=== PATIENT | female | born 1965 | race Caucasian/White ===

== ENCOUNTER → 2019-12-15 12:56 | Outpatient (CLI) | payer OTHER, SELFPAY ==
--- NOTE | ~2019-12-15 | MM_ITS ---
EXAMINATION: MM screening [facility] BI w elizabeth HISTORY: Screening mammogram TECHNIQUE: Craniocaudal and mediolateral oblique 3-D tomosynthesis images were obtained and synthetic 2-D images were generated. CAD analysis was submitted and interpreted. COMPARISON: 06/19/2018, 12/17/2016, 08/01/2015 BREAST PARENCHYMAL COMPOSITION: There are scattered areas of fibroglandular density. FINDINGS: RIGHT BREAST: There is no evidence of suspicious mass, calcification, or architectural distortion to suggest malignancy. There has been no significant interval change. LEFT BREAST: An asymmetry is present in the posterior third of the breast best appreciated 10 cm from the nipple on the mediolateral oblique view. IMPRESSION: 1. Left breast asymmetry on the mediolateral oblique view. 2. Additional mammographic views and possible breast ultrasound are recommended. BI-RADS Category 0: Incomplete: Needs additional imaging evaluation. Reviewed, dictated and finalized at location A. IMPRESSION: 1. Left breast asymmetry on the mediolateral oblique view. 2. Additional mammographic views and possible breast ultrasound are recommended . BI-RADS Category 0: Incomplete: Needs additional imaging evaluation.
== END ==
PROVIDERS: Visit Provider Nurse Practitioner Obstetrics & Gynecology
DX: Z12.31 Encounter for screening mammogram for malignant neoplasm of breast (principal); R92.8 Other abnormal and inconclusive findings on diagnostic imaging of breast
CPT/HCPCS: 77063; 77067

== ENCOUNTER → 2020-01-15 13:09 | Outpatient (CLI) | payer OTHER, SELFPAY ==
--- NOTE | ~2020-01-15 | MMUS_ITS ---
EXAMINATION: MM diagnostic mammo unilat LT, US breast LT limited HISTORY: Left breast asymmetry reported on screening MLO view of 12/15/2019 TECHNIQUE: Additional 3-D tomosynthesis images of the left breast were performed . CAD analysis was s ubmitted and interpreted. High resolution targeted 3:00 left breast ultrasound was performed. COMPARISON: 12/15/2019 bilateral digital screening mammogram FINDINGS: MAMMOGRAPHIC FINDINGS: A circumscribed approximately 6 cm opacity is noted in the mid to posterior aspect of the mid outer l eft breast. Targeted left breast ultrasound is recommended. No other suspicious mass or architectural distortion is evident. ULTRASOUND: 3:00 6 cm from nipple: 2.2 x 4.4 x 3.7 mm sonolucency, consistent with small cysts 3:00 8 cm from nipple: There is an ill-defined irregular hypoechogenicity with color flow signal and posterior shadowing at 3:00 8 cm from the nipple. This is suspicious appearing sonographically. Ultra sound-guided biopsy is recommended. IMPRESSION: 1. Irregular hypoechoic shadowing lesion with internal vascularity at 3:00 8 cm from nipple; 2. Ultrasound-guided biopsy of 3:00 lesion 8 cm from nipple is recommended BI-RADS category 4, suspicious findings. Reviewed, dictated and finalized at location A. IMPRESSION: 1. Irregular hypoechoic shadowing lesion with internal vascularity at 3:00 8 cm from nipple; 2. Ultrasound-guided biopsy of 3:00 lesion 8 cm from nipple is recommended BI-RADS category 4, suspicious findings.
== END ==
PROVIDERS: PCP Family Medicine; Visit Provider Nurse Practitioner Obstetrics & Gynecology
DX: R92.8 Other abnormal and inconclusive findings on diagnostic imaging of breast (principal)
CPT/HCPCS: 76642; 77065

== ENCOUNTER 2020-03-29 08:43 | Outpatient (CLI) | payer OTHER, SELFPAY | END 2020-03-29 08:44 | disposition home or self-care (01) | PROVIDERS: PCP Family Medicine; Visit Provider Obstetrics & Gynecology | DX: N83.201 Unspecified ovarian cyst, right side (principal) | CPT/HCPCS: 36415; 86850; 86900; 86901 ==

== ENCOUNTER 2020-04-03 00:59 | Outpatient (CLI) | payer OTHER, SELFPAY ==
[2020-04-04 03:00] LABS: SARS-CoV-2 RNA PCR Negative
== END 2020-04-03 01:00 | disposition home or self-care (01) ==
LOC: ANHCOVIDDT 01:00
PROVIDERS: PCP Family Medicine; Visit Provider Obstetrics & Gynecology
DX: Z01.812 Encounter for preprocedural laboratory examination (principal); Z20.828 Contact with and (suspected) exposure to other viral communicable diseases
CPT/HCPCS: 87635; C9803; U0003

== ENCOUNTER 2020-04-05 02:28 | Day surgery (SDC) | payer OTHER, SELFPAY ==
[2020-03-25 14:09] VITALS: BMI 27.2
--- NOTE | 2020-04-03 07:29 | PM.IMHP ---
H&P: HPI History of Present Illness Date/Time: 04/03/20 07:29 Chief complaint: complex right ovarian cyst Narrative: Abby Moreno is a 54 year old female presents with a large right ovarian cyst. She will undergo laparoscopic bilateral salpingo-oophorectomy. Risks and benefits were reviewed including but not exclusive of , aspiration pneumonia, bleeding, transfusion, perforation injury to bowel, bladder, ureters, or other internal organs with need for laparotomy. She received the [employer] handout entitled laparoscopy. She had all questions answered. She asked to proceed Review of Systems Review of Systems: All systems reviewed & are unremarkable except as noted in HPI and below PMFSH Past Medical History Medical History Hernia Surgical History Surgical History History of hysterectomy including cervix History of lumpectomy [place] teeth extracted Family History Family History Father Family history of arthritis Family history of malignant neoplasm Acute myocardial infarction Mother Family history of migraine headaches Other Cerebrovascular accident Diabetes mellitus Family history of allergic disorder Family history of cardiovascular disease Social History Social History Smoking packs per day: 1 Smoking cigarettes per day: 20.0 Years smoked: 3 Smoking pack-years: 3.00 Smoking status: Former smoker Tobacco type: cigarettes Second hand tobacco smoke exposure: No Smoking end date: 05/31/87 Additional smoking assessment comments: QUIT 32 YEARS AGO Alcohol intake: current Drinks per week: 2 Spiritual care concerns: No Meds Home Medications and Allergies Home Medications Medication Instructions Recorded Confirmed Type calcium carbonate 600 mg-vitamin 1 tablet PO DAILY 12/08/19 03/25/20 History D3 1,000 unit-vitamin K2 90 mcg tab multivitamin 1 tablet PO DAILY 12/08/19 03/25/20 History rizatriptan 10 mg tablet See Rx Instructions PO .COMPLEX 12/21/19 03/25/20 Rx #10 tablet Estrogen Cream 1 applic TOPICAL DAILY 03/25/20 History Testosterone Cream 1 applic TOPICAL .5XDAILY 03/25/20 History cholecalciferol (vitamin D3) 125 mcg PO DAILY 03/25/20 03/25/20 History [Vitamin D3] vitamin K2 45 mcg PO DAILY 03/25/20 03/25/20 History Allergies Allergy/AdvReac Type Severity Reaction Status Date / Time Penicillins Allergy Unknown Hives, Verified 03/25/20 14:10 muscle soreness Exam Const: General: no acute distress Eyes: General: appearance normal, both eyes and all related structures Neck: Neck: supple and no JVD Thyroid: thyroid normal Resp: Effort & Inspection: normal respiratory effort Auscultation: clear to auscultation bilaterally Cardio: Rate: regular rate Rhythm: regular rhythm GI: Inspection: non-distended GI Palp: Yes Soft to palpation, No Tenderness to palpation present (GI) and No Guarding due to palpation present (GI) Auscultation: normal bowel sounds : General: Yes bladder normal to inspection External Female Exam: normal external appearance Speculum Exam - Vagina: normal appearance of the vagina Speculum Exam - Cervix: Cervix absent Bimanual exam- vagina & uterus: uterus absent Bimanual Exam- Adnexa, other: other ( adnexal tenderness and fullness bilaterally) Skin: General skin exam: no rashes or lesions noted Extrem: General: normal to inspection and no edema Psych: Mental Status: mental status grossly normal Affect: normal affect Assessment and Plan Additional Plan impression: Complex right ovarian cyst and a 54-year-old Plan laparoscopic bilateral salpingo-oophorectomy
--- NOTE | 2020-04-04 13:00 | P.PNAN_ITS ---
Anes - Initial Pre Proc Eval Procedure: Operation Date: 04/05/20 09:30 Proposed Procedures p Laparoscopic Bilateral Salpingo Oophorectomy - Humphrey Rivera MD Date/Time: 04/04/20 13:00 Surgeon: Humphrey Rivera MD Pre Op Diagnosis: complex right ovarian cyst Patient Data Age: 54 Gender: F Height: 1.78 m Weight: 86.18 kg Allergies Allergy/AdvReac Type Severity Reaction Status Date / Time Penicillins Allergy Unknown Hives, Verified 04/05/20 07:55 muscle soreness Home Medications Medication Instructions Recorded Confirmed Type calcium carbonate 600 mg-vitamin 1 tablet PO DAILY 12/08/19 04/05/20 History D3 1,000 unit-vitamin K2 90 mcg tab multivitamin 1 tablet PO DAILY 12/08/19 04/05/20 History rizatriptan 10 mg tablet See Rx Instructions PO .COMPLEX 12/21/19 03/25/20 Rx #10 tablet Estrogen Cream 1 applic TOPICAL DAILY 03/25/20 04/05/20 History Testosterone Cream 1 applic TOPICAL .5XDAILY 03/25/20 04/05/20 History cholecalciferol (vitamin D3) 125 mcg PO DAILY 03/25/20 04/05/20 History [Vitamin D3] vitamin K2 45 mcg PO DAILY 03/25/20 04/05/20 History hydrocodone-acetaminophen 1 tablet PO Q6H PRN #30 tablet 04/05/20 Rx Patient hx anesthesia problems: none Family hx anesthesia problems: none PMFSH Past Medical History Medical History (Updated 04/04/20 @ 13:02 by Samy Reddy MD) Hernia Leiomyoma Overweight (BMI 25.0-29.9) Surgical History Surgical History History of hysterectomy including cervix History of lumpectomy [place] teeth extracted Family History Family History Father Family history of arthritis Family history of malignant neoplasm Acute myocardial infarction Mother Family history of migraine headaches Other Cerebrovascular accident Diabetes mellitus Family history of allergic disorder Family history of cardiovascular disease Social History Social History Smoking packs per day: 1 Smoking cigarettes per day: 20.0 Years smoked: 3 Smoking pack-years: 3.00 Smoking status: Former smoker Tobacco type: cigarettes Second hand tobacco smoke exposure: No Smoking end date: 05/31/87 Additional smoking assessment comments: QUIT 32 YEARS AGO Alcohol intake: current Drinks per week: 2 Spiritual care concerns: No Anes - Eval Final PreProcedure Day of Procedure 04/04/20 13:00 Patient weight: overweight Heart: regular rate and rhythm Lungs: clear to auscultation and normal air movement Airway: Mallampati scale class II Neurological: alert and oriented Last oral intake: >/= 8 hours ASA classification: II Emergent: no Anesthetic plan: proceed Anesthesia type and monitoring: general ETT Informed Consent: The patient's anesthetic plan and its attendant risks and benefits were discussed with the patient/family/POA. Questions were solicited and answers provided to the satisfaction of the patient/family/POA.
[2020-04-05] VITALS (10 sets, daily range): BP systolic 113–139; BP diastolic 65–88; PULSE 55–83; RESP 11–19; TEMP 36–36.4; O2SAT 99–100
--- NOTE | 2020-04-05 06:21 | WPDHPUPDATE1 ---
History and Physical Update Update Date/Time: 04/05/20 06:21 History and Physical has been reviewed, including an updated exam of the patient. There are NO changes in the patient's condition. Risks, benefits, and alternatives have been discussed and questions answered. Patient agrees to proceed with procedure.
[2020-04-05] MEDS: ACETAMINOPHEN 500 MG TABLET 1000 MG PO (08:02)
[2020-04-05] MEDS: KETOROLAC 15 MG/ML VIAL (*BKC) IV PUSH (08:15)
[2020-04-05] MEDS: LACTATED RINGERS 1,000 ML 30 ML IV CONT ×2 (08:16→09:50)
--- NOTE | 2020-04-05 09:45 | PM.PROC ---
Procedure Note - Detailed Date of procedure: 04/05/20 Pre-op diagnosis: complex right ovarian cyst Surgeon: Humphrey Rivera MD Postop diagnosis: Complex right ovarian cyst Procedure: Laparoscopic bilateral salpingo-oophorectomy EBL: 25cc Findings: Moderate size right ovarian cyst absent uterus. Normal-appearing left ovary and tube Complications: None Anesthesia: General endotracheal Description of procedure: The patient was prepped draped in the normal sterile fashion and placed in the dorsal lithotomy position. Under excellent general trach anesthesia weighted speculum placed in posterior fornix of vagina. A sponge stick was placed in the weighted speculum removed. More than 500cc of clear urine was removed. Gloves were changed. An infraumbilical incision made. The Veress needle was passed in the abdomen. The abdomen was filled with CO2 gas [id number]. The 5mm trocar was advanced under direct visualization with the scope and no injury seen. The patient placed in Trendelenburg and a suprapubic incision made. The 5mm trocar advanced under direct visualization assuring no injury. A left lower quadrant incision made and 10mm trocar advanced under direct visualization assuring no injury. The left ovary and tube appeared within normal limits it was grasped the infundibulopelvic structure was clamped with the LigaSure burned cut at and placed in the cul-de-sac. The a benign appearing complex right ovarian cyst was noted. The infundibulopelvic structure was skeletonized there clamped, burned, cut LigaSure and then the Endo-Catch was placed in the abdomen. The ovary and tube combinations were placed in the Endo-Catch and removed under direct visualization. The gas removed from the abdomen when the pedicles were noted be dry. The incisions were closed with 4 O Monocryl and glue. The patient went to recovery in satisfactory condition. Sponge, needle, instrument counts were correct. There were no immediate complications
[2020-04-05] MEDS: fentaNYL CITRATE INJ (*CRX) 100 MCG/2 ML VIAL 25 MCG IV PUSH ×2 (10:17→10:29)
--- NOTE | 2020-04-05 14:46 | SUR.PHASEII ---
1110- c/o nausea. medicated for same.
== END 2020-04-05 12:30 | disposition home or self-care (01) ==
PROVIDERS: PCP Family Medicine; Visit Provider Obstetrics & Gynecology
PROC: (CPT 49320; principal; 2020-04-05 09:30)
DX: D27.0 Benign neoplasm of right ovary (principal); N83.8 Other noninflammatory disorders of ovary, fallopian tube and broad ligament; Z87.891 Personal history of nicotine dependence
CPT/HCPCS: 58661; 88305; A9270; J1885; J2250; J3010; J7030; J7120

== ENCOUNTER 2021-10-16 14:15 | Emergency (ER) | payer OTHER, SELFPAY ==
--- NOTE | ~2021-10-16 | XR_ITS ---
XR lumbar spine 2-3V 10/16/2021 15:02 Indication: Low back pain Procedure: 4 views lumbar spine Comparison: 08/24/2007 Findings: Normal lumbar lordosis. Vertebral body heights are maintained. No significant disc narrowin g. No fracture, subluxation or spondylolisthesis. Pedicles intact. Sacral foramen are symmetric. Ther e is calcification overlying the right upper abdomen which is consistent with a calcified granuloma o f the right lower lobe seen on prior CT. Impression: 1: No significant abnormality of the lumbar spine. Reviewed, dictated and finalized at location B. Impression: 1: No significant abnormality of the lumbar spine.
[2021-10-16 14:29] VITALS: BP 144/87; PULSE 81; RESP 16; TEMP 36.1; O2SAT 98
--- NOTE | 2021-10-16 14:36 | ED.BACK ---
HPI - Back Pain/Injury General Chief Complaint: Back Pain/Injury Stated Complaint: lower back injury Time Seen by Provider: 10/16/21 14:37 Source: patient Mode of arrival: ambulatory Limitations: no limitations History of Present Illness HPI Narrative: Abby baron is a 6 yo female with a PMH of migraine who comes to her with lower back pain that started on Wednesday when she got up her desk at school. She is unaware of any real injury but has difficulty getting out of a chair. She is taken Tylenol and Advil and try [place] balm that has not really affected her back pain Related Data Home Medications Medication Instructions Recorded Confirmed multivitamin 1 tablet PO DAILY 12/08/19 04/05/20 Estrogen Cream 1 applic TOPICAL DAILY 03/25/20 04/05/20 Testosterone Cream 1 applic TOPICAL .5XDAILY 03/25/20 10/16/21 vitamin K2 45 mcg PO DAILY 03/25/20 10/16/21 meloxicam 15 mg PO DAILY 10/16/21 10/16/21 zolpidem 10/16/21 Allergies Allergy/AdvReac Type Severity Reaction Status Date / Time Penicillins Allergy Unknown Hives, Verified 10/16/21 14:24 muscle soreness Review of Systems Review of Systems: CONSTITUTIONAL: Denies fever, chills, sweats. EYES: Denies visual changes, redness, discharge. ENT: Denies rhinorrhea, congestion, sore throat, otalgia. CARDIOVASCULAR: Denies chest pain, palpitations, edema. RESPIRATORY: Denies dyspnea, wheezing, cough GASTROINTESTINAL: Denies abdominal pain, nausea, vomiting, diarrhea. GENITOURINARY: Denies dysuria, hematuria, abnormal discharge SKIN: Denies rash or itching. NEUROLOGIC: Denies numbness, or focal weakness. PSYCHIATRIC: Denies anxiety or depression. [facility] Past Medical History Medical History Hernia Leiomyoma Overweight (BMI 25.0-29.9) Surgical History Surgical History History of hysterectomy including cervix History of lumpectomy [place] teeth extracted Family History Family History Father Family history of arthritis Family history of malignant neoplasm Acute myocardial infarction Mother Family history of migraine headaches Other Cerebrovascular accident Diabetes mellitus Family history of allergic disorder Family history of cardiovascular disease Social History Social History Smoking packs per day: 1 Smoking cigarettes per day: 20.0 Years smoked: 3 Smoking pack-years: 3.00 Smoking status: Former smoker Tobacco type: cigarettes Second hand tobacco smoke exposure: No Smoking end date: 05/31/87 Additional smoking assessment comments: QUIT 32 YEARS AGO Alcohol intake: current Drinks per week: 2 Spiritual care concerns: No Comments At time of signature, I agree with nursing past medical, surgical, social and family history. There is no relevant family history pertinent to the presenting complaint. Exam Narrative: GENERAL: This is a well-nourished, well-developed patient, in mild distress. HEAD: normocephalic, atraumatic. EYES: PERRL. Sclera clear/white. Vision is grossly intact. EARS: External ears normal, auditory canals clear and without drainage, TMs normal without perforation. Hearing grossly intact. NOSE: External nose normal without nasal discharge, nares without redness, no rhinorrhea. THROAT: Mucous membranes moist, posterior pharynx NECK: Neck supple, non-tender CARDIOVASCULAR: Regular rate and rhythm without murmurs, gallops, or rubs. RESPIRATORY: Clear to auscultation. Breath sounds equal bilaterally. No wheezes, rales, or rhonchi. GASTROINTESTINAL: Abdomen soft, non-tender, SKIN: warm, intact with no suspicious lesions or rash, good texture and turgor. NEURO: awake, alert, and oriented to person, place and time. There were no obvious focal neurologic abnormalities. Steady gait EXTREMITI
== END 2021-10-16 15:32 | disposition home or self-care (01) ==
PROVIDERS: Emergency Provider Nurse Practitioner
DX: S39.012A Strain of muscle, fascia and tendon of lower back, initial encounter (principal); X58.XXXA Exposure to other specified factors, initial encounter
CPT/HCPCS: 72100; 99213; G0463

== ENCOUNTER 2022-02-20 14:42 | Outpatient (CLI) | payer OTHER, SELFPAY ==
--- NOTE | ~2022-02-20 | MM_ITS ---
EXAMINATION: MM screening [facility] BI w elizabeth HISTORY: Screening mammogram TECHNIQUE: Craniocaudal and mediolateral oblique 3-D tomosynthesis images were obtained and synthetic 2-D images were generated. CAD analysis was submitted and interpreted. COMPARISON: 01/15/2020, 12/15/2019, 06/07/2018 BREAST PARENCHYMAL COMPOSITION: There are scattered areas of fibroglandular density. FINDINGS: There is no suspicious mass, calcification, or architectural distortion to suggest malignan cy in either breast. There has been no suspicious interval change. IMPRESSION: 1. No mammographic evidence of malignancy. 2. Recommend routine screening mammography in one year. BI-RADS Category 1: Negative Reviewed, dictated and finalized at location A.
== END 2022-02-20 14:43 | disposition home or self-care (01) ==
PROVIDERS: Visit Provider Obstetrics & Gynecology
DX: Z12.31 Encounter for screening mammogram for malignant neoplasm of breast (principal)
CPT/HCPCS: 77063; 77067

== ENCOUNTER 2023-03-10 14:42 | Outpatient (CLI) | payer OTHER, SELFPAY ==
--- NOTE | ~2023-03-10 | DEXA_ITS ---
Bone Density Report Name: SINDHU PETER Age: 57 Sex: Female Ethnicity: White Date of : 1965 Indication: postmenopausal; screening for osteoporosis; height loss; hysterectomy; Referring Provider: ARACELIJOSE ALBERTO Study: Bone densitometry was performed. Exam Date: March 10, 2023 Accession number: [id number] Bone Density: Region BMD T-score Z-score Classification AP Spine(L1-L4) 0.917 -1.2 0.1 Osteopenia Femoral Neck (Left) 0.708 -1.3 -0.1 Osteopenia Total Hip (Left) 0.803 -1.1 -0.3 Osteopenia Femoral Neck (Right) 0.656 -1.7 -0.5 Osteopenia Total Hip (Right) 0.752 -1.6 -0.7 Osteopenia Total Hip Mean 0.778 -1.4 -0.5 Osteopenia World Health Organization criteria for BMD impression classify patients as: Normal (T-score at or above -1.0), Osteopenia (T-score between -1.0 and -2.5), or Osteoporosis (T-score at or below -2.5). 10-year Fracture Risk(1): Major Osteoporotic Fracture 8.3% Hip Fracture 0.8% Reported Risk Factors: [place] (), Neck BMD=0.656, BMI=25.5 (1) FRAX(R) Version 3.08. Fracture probability calculated for an untreated patient. Fracture probability may be lower if the patient has received treatment. Clinical Information Provided by Patient: Has used the following medications: Vitamin D Has the following medical conditions: Hysterectomy Patient maximum height was 70 Menopause Age: 39 Drinks caffeinated beverages Onset of menses at age 12 Number of children 2 Impression: The patient has low bone mass, based on the Right Femoral Neck T-score. The patient has an estimated ten-year risk of hip fracture of 0.8% and an estimated ten-year risk of major fracture of 8.3%, based on the WHO FRAX algorithm. Discussion: BONE DENSITY IS LOW AT ONE OR MORE SKELETAL SITES. This patient's lowest T-score is low at one or more skeletal sites. It meets the World Health Organization's (WHO) criteria for ?low bone mass? (T-score between -1.0 and -2.5). The patient's 10-year risk of fracture as calculated by FRAX is less than the threshold where pharmacological therapy is recommended by the National Osteoporosis Foundation (NOF). However, all treatment decisions require clinical judgment and consideration of individual patient factors, including patient preferences, comorbidities, previous drug use, risk factors not captured in the FRAX model (e.g., frailty, falls, vitamin D deficiency, increased bone turnover, interval significant decline in bone density) and possible under or overestimation of fracture risk by FRAX. The patient should follow a healthful lifestyle (good nutrition with adequate calcium and vitamin D, and appropriate weight-bearing exercise). Follow-Up: Consider repeating this study in 2 to 3 years to reassess this patient's status, or sooner if there is some new
== END 2023-03-10 14:43 | disposition home or self-care (01) ==
LOC: ANHIMG 14:46
PROVIDERS: PCP Hospitalist; Visit Provider Hospitalist
DX: Z13.820 Encounter for screening for osteoporosis (principal); Z78.0 Asymptomatic menopausal state; M85.88 Other specified disorders of bone density and structure, other site; M85.852 Other specified disorders of bone density and structure, left thigh; M85.851 Other specified disorders of bone density and structure, right thigh
CPT/HCPCS: 77080

== ENCOUNTER 2024-02-29 12:43 | Outpatient (CLI) | payer OTHER, SELFPAY ==
--- NOTE | ~2024-02-29 | MM_ITS ---
EXAMINATION: MM screening [facility] BI w elizabeth HISTORY: Screening TECHNIQUE: Craniocaudal and mediolateral oblique 3-D tomosynthesis images were obtained and synthetic 2-D images were generated. CAD analysis was submitted and interpreted. COMPARISON: Comparison to multiple prior studies sequentially, with oldest reviewed study dated 07/2015. BREAST PARENCHYMAL COMPOSITION: Not dense: There are scattered areas of fibroglandular density. FINDINGS: There is no evidence of suspicious mass, calcification, or architectural distortion to sugg est malignancy in either breast. There has been no suspicious interval change. IMPRESSION: 1. No mammographic evidence of malignancy. 2. Recommend routine screening mammography in one year. BI-RADS Category 1: Negative Reviewed, dictated and finalized at location B.
== END 2024-02-29 12:44 | disposition home or self-care (01) ==
PROVIDERS: PCP Hospitalist; Visit Provider Obstetrics & Gynecology
DX: Z12.31 Encounter for screening mammogram for malignant neoplasm of breast (principal)
CPT/HCPCS: 77063; 77067

== ENCOUNTER 2024-03-02 15:33 | Outpatient (CLI) | payer OTHER, SELFPAY ==
--- NOTE | ~2024-03-02 | MR_ITS ---
EXAMINATION: MR shoulder LT wo con DATE: 03/02/2024 16:13 INDICATION: Chronic left shoulder pain. TECHNIQUE: Magnetic resonance imaging (MRI) of the left shoulder was performed without intravenous co ntrast. Sequences included axial PD-weighted FS FSE, coronal oblique PD-weighted FS FSE and T2-weight ed FS FSE, and sagittal oblique T2-weighted FS FSE and T1-weighted FSE. COMPARISON: Left shoulder MRI 07/09/2014 FINDINGS: Coracoacromial arch: The acromion undersurface is curved in morphology (type II). There is mild acromioclavicular joint os teoarthritis. There is mild subacromial/subdeltoid bursitis. Rotator cuff: There is an articular-sided, partial-thickness tear of supraspinatus tendon measuring 6 mm anterior t o posterior by 23 mm proximal to distal by 70% tendon thickness. There is mild infraspinatus tendinop athy. Teres minor tendon is normal. There is mild subscapularis tendinopathy. There is no asymmetric fatty atrophy of the rotator cuff muscle bellies. Biceps tendon and glenoid labrum: Biceps tendon is in bicipital groove. Intra-articular biceps tendon is normal. The glenoid labrum is intact. Fluid: There is no glenohumeral joint effusion. Bones/cartilage: There is cartilage surface irregularity of glenoid and humeral head. IMPRESSION: 1. Articular-sided, partial-thickness tear of supraspinatus tendon. 2. Mild glenohumeral joint chondrosis. 3. Mild acromioclavicular joint osteoarthritis. 4. Mild subacromial/subdeltoid bursitis. Reviewed, dictated and finalized at location A.
== END 2024-03-02 15:34 | disposition home or self-care (01) ==
LOC: MICIMG 15:35
DX: M19.012 Primary osteoarthritis, left shoulder (principal)
CPT/HCPCS: 73221

== ENCOUNTER 2025-03-05 12:17 | Outpatient (CLI) | payer OTHER, SELFPAY ==
--- NOTE | ~2025-03-05 | MM_ITS ---
EXAMINATION: MM screening mary BI w elizabeth HISTORY: Screening TECHNIQUE: Craniocaudal and mediolateral oblique 3-D tomosynthesis images were obtained and synthetic 2-D images were generated. CAD analysis was submitted and interpreted. COMPARISON: Comparison to multiple prior studies sequentially, with oldest reviewed study dated , 06/07/2018 BREAST PARENCHYMAL COMPOSITION: There are scattered areas of fibroglandular density. FINDINGS: There is no evidence of suspicious mass, calcification, or architectural distortion to suggest malignancy in either breast. IMPRESSION: 1. No mammographic evidence of malignancy. 2. Recommend routine screening mammography in one year. BI-RADS Category 1: Negative Reviewed, dictated and finalized at location B.
--- OUTSIDE RECORDS SUMMARY | 2025-03-05 13:18 | XMS_ITS | Clinical Summary ---
Author Organization [facility] Address [address] [place] [address] Care Team Providers Care Grazing Aide Name Role Phone Caleb Carr MD Unavailable [phone] Alfredo Hurt MD Primary Care Provider [phone] Allergies Active Allergy Reactions Criticality Noted Date Comments Azithromycin Hives Medium 06/15/2024 Penicillins Other (See comments),Redness Medium 2019 Muscle weakness Medications rizatriptan (MAXALT) 10 mg tablet 0 Active testosterone (ANDROGEL) 1 % (25 mg/2.5gram) gel in packet Place 50 mg on the skin daily Active vit D3-folic [id number] 2,000-800-0.32 unit-mcg-mg tablet Take by mouth Active cholecalciferol (VITAMIN D-3) 2000 unit tablet Take by mouth Active UNABLE TO FIND Med Name: Patient receives testosterone injection every three months. She is unsure of dosage. Active testosterone (TESTOPEL) 75 mg pellet Inject 175 mg under the skin once Patient receives 175 mg dose once every 3 months. Last dose 10/2024 Active Active Problems Problem Noted Date Diagnosed Date Osteopenia of multiple sites 11/21/2024 Assessment & Plan (11/21/2024 4:39 PM CDT): Stable, no falls or fractures; continue to monitor calcium and vitamin-D levels Encouraged calcium and vitamin-D supplementation Recommend regular physical activity especially weight-bearing activity in order to improve lean muscle mass and bone mineral density Encounter for screening colonoscopy 11/09/2024 Lower respiratory infection 06/13/2024 Assessment & Plan (06/13/2024 2:37 PM MEDICAL TECHNICIAN): Albuterol E scribed. Rinse mouth after using. Will also send in azithromycin and benzonatate. Chest x-ray today. Continue with Mucinex. Recommend Zyrtec, Flonase, saline nasal spray, humidifier. Push p.o. hydration and relative rest. RTC if worsening or not resolving. Red flags reviewed. Left shoulder pain 02/03/2024 Assessment & Plan (02/03/2024 8:02 PM CDT): Options for management of pain as discussed Use of heat/ice/exercises Medication as prescribed Use of medication and possible side effects as discussed X-ray left shoulder. Seek emergent care if symptoms worsen acutely Follow up if symptoms are not resolving Mixed hyperlipidemia 11/04/2023 Assessment & Plan (11/21/2024 4:38 PM CDT): Stable, well controlled, near optimal levels Encourage low-fat high-fiber diet; 30 minutes moderate intensity exercise to help with management of cholesterol Chronic thumb pain, bilateral 11/03/2023 Assessment & Plan (11/03/2023 3:26 PM CDT): Discussed use of diclofenac gel. Can take OTC NSAIDs p.r.n. Biceps muscle strain 11/03/2023 Assessment & Plan (11/03/2023 3:27 PM CDT): It is likely related to weightlifting chronically. Discussed use of heat/ice/exercises. Can apply the diclofenac gel topically as discussed. Health maintenance examination 11/03/2023 Assessment & Plan (11/03/2023 3:29 PM CDT): Flu shot each February. Tetanus booster every 10 years. Mammogram yearly. Follow- up with the checker and packer for breast exam and pelvic exam as they direct. Follow-up as planned, sooner if needed Migraine without aura and wi thout status migrainosus, not intractable 11/10/2022 Assessment & Plan (11/21/2024 4:39 PM CDT): Stable, well controlled, decreased frequency of migraines Continue use of home therapies, continue Maxalt PRN for acute migraines Assessment & Plan (11/03/2023 3:23 PM CDT): No recent migraines. Has rizatriptan 10 mg for p.r.n. use Assessment & Plan (11/10/2022 10:45 AM CDT): Gets 1-2 headaches per month; requires multiple doses of Maxalt Patient reports symptoms improved since starting hormone replacement therapy Continue HRT; rizatriptan 10 mg p.r.n. for migraine Primary osteoarthritis of right hip 11/10/2022 Assessment & Plan (11/10/2022 10:46 AM CDT): Pain located in right hip and low back; no radiation; stabbing in nature, can occur with no exacerbating factors Has relief with ice and heat Continue ibuprofen p.r.n. for pain Abnormal mammogram 01/30/2020 Lesion of ovary 08/22/2019 Overview (11/01/2023): Other ovarian cyst, right side;Recorded Elsewhere: No Location: [facility] Source: EHR Chronic: N Practice ID: [id number] Billable Time: 10:30:00 AM Resolved Problems Problem Noted Date Diagnosed Date Resolved Date Screening for diabetes mellitus 11/03/2023 02/03/2024 Screening for lipid disorders 11/03/2023 02/03/2024 Screening for thyroid disorder 11/03/2023 02/03/2024 Immunizations Immunization Administration Dates Next Due Influenza, Unspecified 06/13/2024(Deferr ed: Patient Refused),02/01/2024(Deferred: Patient Refused),03/08/2023(Deferred: Patient Refused),02/28/2023(Deferred: Patient Refused),05/31/2022(Deferred: Patient Refused),05/31/2021(Deferred: Patient Refused) Pfizer SARS-CoV-2 Monovalent Vaccination (12+ Yrs) PURPLE 10/01/2020 TD Preservative Free 09/09/2004 Tdap 07/24/2017,09/28/2011 Surgical History Surgery Date Site/Laterality Comments BREAST BIOPSY 01/30/2020 Left HYSTERECTOMY 05/31/2006 - 05/30/2007 N/A OOPHERECTOMY 05/31/2020 - 05/30/2021 Bilateral HERNIA REPAIR 05/31/2005 - 05/30/2006 N/A COLONOSCOPY 05/31/2014 - 05/30/2015 Medical History Medical History Date Comments Migraines 1990s PONV (postoperative nausea and vomiting) Family History Medical History Relation Name Comments Bladder Cancer Father Eric Hdz Cancer Father Eric Hdz Diabetes Father Eric Hdz Early Father Eric Hdz Hearing loss Father Eric Hdz Heart attack Father Eric Hdz Heart disease Father Eric Hdz Breast cancer Father's Sister Uterine cancer Maternal Grandmother Melanoma Mother Relation Name Status Comments Father Eric Hdz Father's Sister Maternal Grandmother Mother Social History Tobacco Use Types Packs/Day Years Used Date Smoking Tobacco: Former Cigarettes 1.3 5 0 02/06/1983 - 02/07/1988 Smokeless Tobacco: Never Tobacco Cessation:Counseling Given: Not Answered AUDIT-C Answer Date Recorded Q1: How often do you have a drink containing alc ohol? Monthly or less 11/23/2024 Q2: How many drinks containi ng alcohol do you have on a typical day when you are drinking? 1 or 2 11/23/2024 Q3: How often do you have si x or more drinks on one occasion? Never 11/23/2024 PHQ-2 Answer Date Recorded PHQ-2 Total Score (If total score is 3 or more points, staff should administer the PHQ-9) 0 11/08/2024 Personal Safety Answer Date Recorded Have you ever been in or are you currently in a harmful physical or emotional relationship or is someone making you feel afraid or unsafe? Denies 11/24/2024 Comments No Sex and Gender Information Value Date Recorded Sex Assigned at Not on file Legal Sex Female 9:13 PM MEDICAL TECHNICIAN Gender Identity Not on file Sexual Orientation Not on file Obstetrics History Last Filed Vital Signs Vital Sign Reading Time Taken Comments Blood Pressure 114/78 11/24/2024 11:55 AM CDT Pulse 58 11/24/2024 11:55 AM CDT Temperature 36.3 C (97.3 F) 11/24/2024 11:55 AM CDT Respiratory Rate 16 11/24/2024 11:55 AM CDT Oxygen Saturation 98% 11/24/2024 11:55 AM CDT Inhaled Oxygen Concentration - - Weight 80.7 kg (178 lb) 11/24/2024 8:52 AM CDT Height 177.8 cm (5' 10) 11/24/2024 8:52 AM CDT Body Mass Index 25.54 11/24/2024 8:52 AM CDT Plan of Treatment Health Maintenance Due Date Last Done Comments Zoster Vaccine (1 of 2) 2014 Covid-19 Vaccine (2 - season) 2025 10/01/2020 Influenza Vaccine (#1) 2025 Breast Cancer Screening-Mammogram 02/28/2025 02/29/2024, 03/01/2023, 03/01/2023, Additional history exists Depression Screening 11/08/2025 11/08/2024, 02/03/2024, 10/19/2022 Regular Well Visit/Exam 18-64 11/08/2025 11/08/2024, 11/03/2023, 10/19/2022 DTaP/Tdap/Td Vaccine (3 - Td or Tdap) 07/24/2027 07/24/2017, 09/28/2011, 09/09/2004 Colon Cancer Screening-Colonoscopy 11/24/2029 11/24/2024 Hepatitis C Screening Completed 10/19/2022 Hepatitis B Screening Completed 10/31/2024 Colon Cancer Screening-CT Colonography Discontinued 11/24/2024 Colon Cancer Screening-DNA Stool Discontinued 11/24/2024 Colon Cancer Screening-FIT Discontinued 11/24/2024 Colon Cancer Screening-Sigmoidoscopy Discontinued 11/24/2024 Pneumococcal vaccine <65 Aged Out No longer eligible based on patient's age to complete this topic Procedures Procedure Name Priority Date/Time Associated Diagnosis Comments COLONOSCOPY 11/24/2024 8:47 AM CDT HM MAMMOGRAPHY Routine 02/29/2024 4:12 PM CDT HEPATITIS C ANTIBODY Routine 10/19/2022 3:59 PM CDT Encounter for hepatitis C screening test for low risk patient from Last 3 Months or Most Recently Relevant to Health Maintenance Results * Colonoscopy (11/24/2024 8:47 AM CDT) Anatomical Region Laterality Modality Other Narrative Procedure Note Ashley Viera MD - 11/24/2024 8:47 AM CDT [facility] Patient Name: Abby Moreno Procedure Date: 11/24/2024 8:47 AM Date of : 1965 Admit Type: Outpatient Age: 59 Gender: Female Attending MD: Ashley Viera M.D. Room: [facility] ENDOSCOPY ROOM 2 Note Status: Finalized Patient Profile: This is a 59 year old female history of migraine,HLD, osteopenia here for colon cancer screening. Nofamily history of colon cancer. Procedure: Colonoscopy Indications: Screening for colorectal malignant neoplasm, Last colonoscopy: 2014 Referring MD: Alfredo Hurt M.D. Providers: Ashley Viera M.D. Impression: - Perianal skin tags found on perianal exam. - Diverticulosis in the sigmoid colon and in the transverse colon. - Tortuous colon. - External and internal hemorrhoids. - No specimens collected. Recommendation: - Patient has a contact number available for emergencies. The signs and symptoms of potential delayed complications were discussed with thepatient. Return to normal activities tomorrow. Written discharge instructions were provided to thepatient. - Discharge patient to home (with escort). - High fiber diet. - Continue present medications. - Repeat colonoscopy in 5 years for screeningpurposes given tortuous colon. - Return to referring physician as previously scheduled. Medicines: Monitored Anesthesia Care Complications: No immediate complications. Estimated Blood Loss: Estimated blood loss: none. Procedure: Pre-Anesthesia Assessment: - Prior to the procedure, a History and Physicalwas performed, and patient medications and allergieswere reviewed. The patient is competent. The risks and benefits of the procedure and the sedation optionsand risks were discussed with the patient. Allquestions were answered and informed consent was obtained. Patient identification and proposed procedure were verified by the physician, the anesthesiologist and the fiscal technician in the endoscopy suite. MentalStatus Examination: normal. Prophylactic Antibiotics: The patient does not require prophylactic antibiotics. Prior Anticoagulants: The patient has taken no anticoagulant or antiplatelet agents. Afterreviewing the risks and benefits, the patient was deemed in satisfactory condition to undergo the procedure.The anesthesia plan was to use monitored anesthesiacare (MAC). Immediately prior to administration of medications, the patient was re-assessed foradequacy to receive sedatives. The heart rate, respiratory rate, oxygen saturations, blood pressure, adequacyof pulmonary ventilation, and response to care were monitored throughout the procedure. The physical status of the patient was re-assessed after the procedure. The benefits, risks and alternatives of theprocedure and sedation were discussed and informed consentwas obtained. All questions were answered. Please referto the signed informed consent document in the medical record. The bowel preparation used was Miralax via split dose instruction. The bowel preparation usedwas bisacodyl tablets via split dose instruction. The scope was passed under direct vision. The Pediatric Colonoscope [id number] was introducedthrough the anus and advanced to the the cecum, identifiedby appendiceal orifice and ileocecal valve. The colonoscopy was somewhat difficult due to multiple diverticula in the colon and a tortuous colon. Successful completion of the procedure was aided by using manual pressure. The patient tolerated the procedure well. The quality of the bowelpreparation was excellent. Bowel prep was administered using a split dose. Findings: Skin tags were found on perianal exam. A few small and large-mouthed diverticula were found in the sigmoid colon and transverse colon. The colon (entire examined portion) was tortuous. Advancing the scope required applying abdominal pressure. External and internal hemorrhoids were found during retroflexion. Ashley Viera M.D. 11/24/2024 11:23:53 AM Number of Addenda: 0 Note Initiated On: 11/24/2024 8:47 AM Procedure Code(s): --- Professional --- G0121, Colorectal cancer screening; colonoscopy on individual not meeting criteria for high risk --- Technical --- G0121, Colorectal cancer screening; colonoscopy on individual not meeting criteria for high risk Diagnosis Code(s): --- Professional --- Z12.11, Encounter for screening for malignant neoplasm of colon K64.8, Other hemorrhoids K64.4, Residual hemorrhoidal skin tags K57.30, Diverticulosis of large intestine without perforation orabscess without bleeding Q43.8, Other specified congenital malformations of intestine --- Technical --- Z12.11, Encounter for screening for malignant neoplasm of colon K64.8, Other hemorrhoids K64.4, Residual hemorrhoidal skin tags K57.30, Diverticulosis of large intestine without perforation orabscess without bleeding Q43.8, Other specified congenital malformations of intestine CPT copyright 2020 [employer]. All rights reserved. The codes documented in this report are preliminary and upon engine lathe tender reviewmay be revised to meet current compliance requirements. Recognized by the [employer] for promoting quality in endoscopy Ashley Viera MD ENDOSCOPY PROCEDURES Final Resul t * HM MAMMOGRAPHY (02/29/2024 4:12 PM CDT) [facility] Provider HEALTH MAINTENANCE Final Result * Hepatitis C antibody (10/19/2022 3:59 PM CDT) Hep C Ab Nonreactive Nonreactive LAURIE STOVER Comment: Interpretive Data Nonreactive: Antibodies to HCV not detected. Does NOT exclude the possibility of recent exposure to HCV. Equivocal: Equivocal for HCV antibodies. Supplemental molecular testing will be automatically performed to determine infection status in accordance with current CDC screening recommendations. Reactive: Positive for HCV antibodies. This may represent current or past HCV infection. Supplemental molecular testing will be automatically performed to determine current infection status in accordance with current CDC screening recommendations. Interpretive data was last revised on 2019. Blood 10/19/2022 3:59 PM CDT 10/19/2022 8:17 PM CDT Alfredo Hurt MD LAB MICROBIOLOGY - GENERA L ORDERABLES Final Result LAURIE [address] Department [place] [address] from Last 3 Months or Most Recently Relevant to Health Maintenance Insurance [facility] Advance Directives For more information, please contact: [phone] * Full Code (Latest Code Status on File) Date Activated Date Inactivated Comments 11/24/2024 9:00 AM 11/24/2024 4:03 PM * Full Code Date Activated Date Inactivated Comments 11/24/2024 9:00 AM 11/24/2024 9:00 AM Care Teams Grazing Aide Relationship Specialty Start Date End [place] [address] PCP - General Family Medicine 10/19/22 Caleb Carr MD [address] [place] [address] Referring Physician Obstetrics and Gynecology 01/19/20
--- OUTSIDE RECORDS SUMMARY | 2025-03-05 13:18 | XMS_ITS | Clinical Summary ---
Author Organization [facility] Address [address] [place] [address] Care Team Providers Care Corporate Compliance Manager Name Role Phone Unavailable Primary Care Provider Unavailabl e Social History Tobacco Use Types Packs/Day Years Used Date Smoking Tobacco: Never Assessed Comments Unknown Sex and Gender Information Value Date Recorded Sex Assigned at Not on file Legal Sex Female 3:04 PM CDT Gender Identity Not on file Sexual Orientation Not on file Plan of Treatment Health Maintenance Due Date Last Done Comments HPV/Cotest (21-29) 1985 CERVICAL CANCER SCREENING 1994 HPV/Cotest (30-65) 1994 PAP SMEAR 1994 COLORECTAL SCREENING 2009 Colorectal Cancer Screening 2009 FIT-DNA Q 3 years 2009 FIT/FOBT Q 1 year 2009 Flex Sig/CT Colonography Q 5 years 2009 ZOSTER VACCINE (1 of 2) 2014 BREAST CANCER SCREENING 03/01/2024 03/01/20 23, 01/02/2021, 08/06/2020, Additional history exists INFLUENZA VACCINE (#1) 2024 DTAP/TDAP/TD VACCINES (3 - Td or Tdap) 07/24/2027 07/24/2017, 09/28/2011, 09/09/2004 RSV VACCINE (60+ or ) (1 - 1-dose 75+ series) 09/15/2039 HEPATITIS B VACCINES Aged Out No long er eligible based on patient's age to complete this topic Procedures Procedure Name Priority Date/Time Associated Diagnosis Comments MAMMO 3D MICAH SCREEN BILAT W OR WO CAD Routine 03/01/2023 3:21 PM CDT Breast cancer screening by mammogram from Last 3 Months or Most Recently Relevant to Health Maintenance Results * MAMMO SCRN BILAT 3D MICAH W OR WO CAD (03/01/2023 3:21 PM CDT) Anatomical Region Laterality Modality Breast Bilateral Mammography 03/01/2023 3:24 PM CDT Impressions 03/01/2023 3:43 PM CDT : BI-RADS Category 2, benign mammogram. Recommend yearly bilateral screening mammogram. Narrative 03/01/2023 3:43 PM CDT EXAM: MAMMO SCRN BILAT 3D MICAH W OR WO CAD DATE: 03/01/2023 CLINICAL HISTORY: Screening in an asymptomatic patient TECHNIQUE: Bilateral full field digital mammography and digital tomosynthesis were performed in the CC and MLO projections. Comparison was made to prior bilateral mammograms performed December 15, 2019 and June 07, 2018, diagnostic left breast mammograms performed February 20, 2022 and January 15, 2020 and a left breast ultrasound performed January 15, 2020. CAD was utilized. FINDINGS: Scattered fibroglandular densities are present. The parenchymal pattern is unchanged compared to the prior exams. A biopsy clip is again identified in the mid outer left breast. Scattered bilateral ovoid and lobular dense breasts masses are unchanged. There is no new suspicious asymmetry or mass, area of architectural distortion or suspicious microcalcification. Humphrey Carlin MD MAMMO ORDERABLES Tiffanie l Result from Last 3 Months or Most Recently Relevant to Health Maintenance Insurance [employer] MANAGED CHOICE
--- OUTSIDE RECORDS SUMMARY | 2025-03-05 13:18 | XMS_ITS | Clinical Summary ---
Author Organization [facility] Address [address] [place] [address] Phone Care Team Providers Care Composition Teacher Name Role Phone Unavailable Primary Care Provider Unavailabl e Allergies Active Allergy Reactions Criticality Noted Date Comments Penicillins Rash 10/11/2020 Medications Rizatriptan Benzoate 10 MG Tablet 1 Active testosterone (ANDROGEL) 25 MG/2.5GM (1%) Gel 50 mg by Transdermal route. Active conjugated estrogens (PREMARIN) 0.625 MG/GM Cream by Vaginal route nightly. Once daily for 21 days, then off for 7 days. Active Acetylcysteine 600 MG Capsule Take by mouth. Active Cholecalciferol (Vitamin D) 2000 UNIT Tablet Take by mouth. Activ e meloxicam (MOBIC) 15 MG Tablet Take 1 Tablet by mouth daily. 90 Tablet 1 Active NAPROXEN PO Take by mouth. Act alex Immunizations Immunization Administration Dates Next Due Covid-19, Mrna, Lnp-s, Pf, 30 Mcg/0.3 Ml Dose (P fizer) 10/01/2020 TDAP Vaccine 07/24/2017,09/28/2011 Td Vaccine (preservative free) 09/09/2004 Social History Tobacco Use Types Packs/Day Years Used Date Smoking Tobacco: Former Smokeless Tobacco: Never Tobacco Cessation:Counseling Given: No Alcohol Use Standard Drinks/Week Comments Yes 0 (1 standard drink = 0.6 oz pur e alcohol) occasionally PHQ-2 Answer Date Recorded Total Score - Questions 1-9 9 09/28 Comments No Sex and Gender Information Value Date Recorded Sex Assigned at Not on file Legal Sex Female 12:16 AM CDT Gender Identity Not on file Sexual Orientation Not on file Last Filed Vital Signs Vital Sign Reading Time Taken Comments Blood Pressure 114/74 10/24/2020 8:59 AM CDT Pulse 70 10/24/2020 8:59 AM CDT Temperature 36.6 C (97.8 F) 10/24/2020 8:59 AM CDT Respiratory Rate 20 10/24/2020 8:59 AM CDT Oxygen Saturation 98% 10/24/2020 8:59 AM CDT Inhaled Oxygen Concentration - - Weight 81.5 kg (179 lb 9.6 oz) 10/24/2020 8:59 A M CDT Height 177.8 cm (5' 10) 10/24/2020 8:59 AM CDT Body Mass Index 25.77 10/24/2020 8:59 AM CDT Plan of Treatment Health Maintenance Due Date Last Done Comments Hepatitis C Virus (HCV) Screening 1965 Cologuard 2009 Immunochemical Fecal Occult Blood 2009 Pneumococcal Immunization (5 0+ years) (1 of 1 - PCV) 2014 Zoster Immunization (1 of 2) 2014 Mammogram 08/06/2021 08/06/2020 Influenza Immunization (#1) 2025 SARS-COV-2 Immunization (2 - season) 2025 10/01/2020 Colonoscopy 05/31/2025 05/31/2015 Colorectal Cancer Screening 05/31/2025 Respiratory Syncytial Virus (RSV) Immunization (Adult) (1 - 1-dose 75+ series) 09/15/2039 DTaP/Tdap/Td Immunization Discontinued 2017, 09/28/2011, 09/09/2004 Hepatitis B Immunization Aged Out No longer eligible based on patient's age to complete this topic Human Papillomavirus (HPV) Immunization Aged Out No longer eligible based on patient's age to complete this topic Meningococcal Immunization (ACWY) Aged Out No longer eligible based on patient's age to complete this topic Rotavirus Immunization Aged Out No lo nger eligible based on patient's age to complete this topic Insurance [facility]
== END 2025-03-05 12:18 | disposition home or self-care (01) ==
LOC: CHSIMG 12:19
PROVIDERS: PCP Hospitalist; Visit Provider Obstetrics & Gynecology
DX: Z12.31 Encounter for screening mammogram for malignant neoplasm of breast (principal)
CPT/HCPCS: 77063; 77067